=== PATIENT | female | born 1950 | race Caucasian/White ===

== ENCOUNTER 2017-06-15 21:24 | Inpatient (IN) | payer MEDICARE ==
[~2017-06-15] VITALS: Ht 167.6 cm; Wt 80.6 kg
[~2017-06-15 21:24] MED LIST: LOSA50TA3 PO; NORCO10T PO
[2017-06-15] MEDS ORDERED: aspirin 81mg tab.chew PO ONE (21:40)
[2017-06-15] MEDS ORDERED: iohexol 300mg/ml 100ml inj. ONE (21:50)
[2017-06-15] MEDS ORDERED: iohexol 350MG/ML 100ml bottle IV ONE (21:51)
[2017-06-15 22:24] LABS: BASOPHILS % (AUTO) 0.3 % (0-1); EOSINOPHILS # (AUTO) 0.2 X10'3 (0-0.9); EOSINOPHILS % (AUTO) 1.4 % (0-6); HEMATOCRIT 31.3 % (35.0-45.0); LYMPHOCYTES # (AUTO) 0.9 X10'3 (1.1-4.8); LYMPHOCYTES % (AUTO) 6.4 % (21-51); MEAN CORPUSCULAR HEMOGLOBIN 24.9 PG (27.0-31.0); MEAN CORPUSCULAR HGB CONC 31.9 % (33.0-36.5); MEAN CORPUSCULAR VOLUME 78.2 FL (78-98); MEAN PLATELET VOLUME 7.9 FL (7.4-10.4); MONOCYTES # (AUTO) 1.2 X10'3 (0-0.9); MONOCYTES % (AUTO) 8.7 % (2-12); NEUTROPHILS # (AUTO) 11.1 X10'3 (1.8-7.7); NEUTROPHILS % (AUTO) 83.2 % (42-75); PLATELET COUNT 336 X10'3 (140-440); WHITE BLOOD COUNT 13.3 X10'3 (4.5-11.0)
[2017-06-15 22:36] LABS: PARTIAL THROMBOPLASTIN TIME 54 SECONDS (22-32); PROTHROMBIN TIME 10.7 SECONDS (9.0-12.0)
[2017-06-15 23:16] LABS: ALANINE AMINOTRANSFERASE 54 U/L (12-78); ALBUMIN 2.7 G/DL (3.4-5.0); ALBUMIN/GLOBULIN RATIO 0.6 (1.1-1.5); ALKALINE PHOSPHATASE 143 IU/L (46-116); ANION GAP 7 (8-16); ASPARTATE AMINO TRANSFERASE 221 U/L (10-37); BILIRUBIN,TOTAL 0.5 MG/DL (0.1-1.0); BLOOD UREA NITROGEN 21 MG/DL (7-18); BUN/CREATININE RATIO 15.7 (6.6-38.0); CALCIUM 8.1 MG/DL (8.5-10.1); CHLORIDE 102 MMOL/L (99-107); CREATININE 1.34 MG/DL (0.40-0.90); GLUCOSE 121 MG/DL (70-104); MAGNESIUM 2.7 MG/DL (1.5-2.4); POTASSIUM 4.3 MMOL/L (3.5-5.1); SODIUM 139 MMOL/L (135-145); TOTAL CARBON DIOXIDE 30.3 MMOL/L (24-32); TOTAL PROTEIN 7.2 G/DL (6.4-8.2); eGFR 40 ML/MIN
[2017-06-15] MEDS ORDERED: normal saline 1000ml 1,000 ML IV SCH (23:44)
[2017-06-15] MEDS ORDERED: morphine 4 MG/ML inj SYRINge IV PRN (23:45)
[2017-06-15] MEDS ORDERED: acetaminophen 325mg tablet PO PRN (23:45)
[2017-06-15] MEDS ORDERED: mag hydrox/Alum hydrox/simeth 30ml oral suspension PO PRN (23:45)
[2017-06-15] MEDS ORDERED: magnesium hydroxide 30ml (MOM) UD suspension PO PRN (23:45)
[2017-06-15] MEDS ORDERED: ondansetron 4mg rapidly disintigrating tab PO ONE (23:45)
[2017-06-15] MEDS ORDERED: heparin 10,000 units/1 ML INJ IV ONE (23:50)
[2017-06-15] MEDS ORDERED: heparin 10,000 units/1 ML INJ IV PRN (23:50)
[2017-06-16] VITALS (10 sets, daily range): BP systolic 91–132; BP diastolic 60–111
[2017-06-16] MEDS ORDERED: losartan 50mg tablet PO PRN
[2017-06-16 00:18] LABS: HEMOGLOBIN A1C 6.2 % (4.5-6.2)
[2017-06-16] MEDS ORDERED: FENT-91 TP (02:56)
[2017-06-16] MEDS: HYDROcodone/acetaminophen 10/325mg tab PO PRN ×3 (05:07→20:26)
[2017-06-16 05:39] LABS: BASOPHILS % (AUTO) 0.1 % (0-1); EOSINOPHILS # (AUTO) 0.2 X10'3 (0-0.9); EOSINOPHILS % (AUTO) 1.6 % (0-6); HEMATOCRIT 32.9 % (35.0-45.0); HEMOGLOBIN 10.6 g/dl (12.0-16.0); LYMPHOCYTES # (AUTO) 0.9 X10'3 (1.1-4.8); LYMPHOCYTES % (AUTO) 7.7 % (21-51); MEAN CORPUSCULAR HEMOGLOBIN 25.1 PG (27.0-31.0); MEAN CORPUSCULAR HGB CONC 32.2 % (33.0-36.5); MEAN CORPUSCULAR VOLUME 77.9 FL (78-98); MEAN PLATELET VOLUME 8.2 FL (7.4-10.4); MONOCYTES # (AUTO) 1.4 X10'3 (0-0.9); NEUTROPHILS # (AUTO) 9.8 X10'3 (1.8-7.7); NEUTROPHILS % (AUTO) 79.6 % (42-75); PLATELET COUNT 340 X10'3 (140-440); RED BLOOD COUNT 4.22 X10'6 (4.20-5.60); RED CELL DISTRIBUTION WIDTH 16.6 % (11.5-14.5); WHITE BLOOD COUNT 12.3 X10'3 (4.5-11.0)
[2017-06-16 05:53] LABS: ALANINE AMINOTRANSFERASE 56 U/L (12-78); ALBUMIN 2.8 G/DL (3.4-5.0); ALBUMIN/GLOBULIN RATIO 0.5 (1.1-1.5); ALKALINE PHOSPHATASE 151 IU/L (46-116); ANION GAP 9 (8-16); ASPARTATE AMINO TRANSFERASE 230 U/L (10-37); BILIRUBIN,TOTAL 0.5 MG/DL (0.1-1.0); BLOOD UREA NITROGEN 17 MG/DL (7-18); BUN/CREATININE RATIO 12.9 (6.6-38.0); CALCIUM 8.7 MG/DL (8.5-10.1); CHLORIDE 99 MMOL/L (99-107); CHOL/HDL RATIO 3.9 (0.00-4.99); CHOLESTEROL 192 MG/DL (0-200); CREATININE 1.32 MG/DL (0.40-0.90); GLUCOSE 119 MG/DL (70-104); HDL CHOLESTEROL 49 MG/DL (35-60); POTASSIUM 3.8 MMOL/L (3.5-5.1); SODIUM 140 MMOL/L (135-145); TOTAL CARBON DIOXIDE 31.9 MMOL/L (24-32); TOTAL PROTEIN 7.9 G/DL (6.4-8.2); TRIGLYCERIDES 134 MG/DL (20-135); eGFR 40 ML/MIN
[2017-06-16 05:55] LABS: LDL CHOLESTEROL 113 MG/DL (50-100)
[2017-06-16] MEDS: sucralfate 1gm/10ml UD suspension PO SCH ×4 (07:50→21:55)
[2017-06-16] MEDS: pregabalin 75mg capsule PO SCH ×2 (07:55→20:27)
[2017-06-16] MEDS: pantoprazole 40 MG vial IV SCH ×2 (08:00→20:27)
[2017-06-16] MEDS ORDERED: OMEP-50 PO (08:04)
[2017-06-16] MEDS ORDERED: SUCR1TAB PO (08:04)
[2017-06-16] MEDS ORDERED: BUME2TAB3 PO (08:04)
[2017-06-16] MEDS: furosemide 40mg/4ml inj IV ONE ×2 (09:40→10:27)
[2017-06-16] MEDS ORDERED: sodium bicarbonate (8.4%) inj. 100 MEQ in sodium chloride 0.45% 1,000 ML IV SCH (09:40)
[2017-06-16] MEDS: acetylcysteine 200 MG/ml 4ml vial PO SCH ×2 (09:40→21:55)
[2017-06-16] MEDS ORDERED: aspirin 81mg tab.chew PO SCH (09:50)
[2017-06-16] MEDS: tirofiban 5mg in NS 100mL 100 ML IV SCH ×4 (10:27→20:57)
[2017-06-16] MEDS: atorvastatin 20mg tablet PO SCH (10:48)
[2017-06-16] MEDS: ondansetron/PF 4mg/2ml inj IV PRN ×2 (11:05→19:56)
[2017-06-16 14:15] LABS: BASOPHILS % (AUTO) 0.1 % (0-1); EOSINOPHILS # (AUTO) 0.1 X10'3 (0-0.9); EOSINOPHILS % (AUTO) 1.2 % (0-6); HEMATOCRIT 28.9 % (35.0-45.0); HEMOGLOBIN 9.3 g/dl (12.0-16.0); LYMPHOCYTES # (AUTO) 0.8 X10'3 (1.1-4.8); LYMPHOCYTES % (AUTO) 6.8 % (21-51); MEAN CORPUSCULAR HEMOGLOBIN 24.8 PG (27.0-31.0); MEAN CORPUSCULAR VOLUME 77.5 FL (78-98); MEAN PLATELET VOLUME 7.8 FL (7.4-10.4); MONOCYTES # (AUTO) 1.4 X10'3 (0-0.9); MONOCYTES % (AUTO) 11.8 % (2-12); NEUTROPHILS # (AUTO) 9.5 X10'3 (1.8-7.7); NEUTROPHILS % (AUTO) 80.1 % (42-75); PLATELET COUNT 326 X10'3 (140-440); RED BLOOD COUNT 3.73 X10'6 (4.20-5.60); WHITE BLOOD COUNT 11.8 X10'3 (4.5-11.0)
[2017-06-16] MEDS ORDERED: nitroGLYCERIN-Tridil 50MG/D5W 250 ML IV ONE (16:38)
[2017-06-16] MEDS ORDERED: iohexol 350 MG/ML 50ML vial IV ONE (16:39)
[2017-06-16] MEDS ORDERED: heparin 1,000unit/ml 10ml vial 10 ML ONE (16:39)
[2017-06-16] MEDS ORDERED: LIDOcaine 1%/PF (10mg/ml) 5ml vial ONE (16:39)
[2017-06-16] MEDS ORDERED: iohexol 350MG/ML 100ml bottle IV ONE (16:39)
[2017-06-16] MEDS ORDERED: HYDROmorphone inj. 0.5 MG/0.5 ML DISP.SYRIN ONE ×2 (16:59→18:14)
[2017-06-16] MEDS ORDERED: iohexol 350 MG/1 ML 200ml bottle ONE (17:55)
[2017-06-16] MEDS ORDERED: clopidogrel 300mg tablet ONE (18:26)
[2017-06-16 19:16] LABS: ISTAT HGB ART 8.8 g/dl (12.0-16.0); ISTAT Hct ART 26 %PCV (35-48); ISTAT Hct MIX 29 %PCV (35-48); ISTAT O2 SATURATION ARTERIAL 99 % (95-98); ISTAT O2 SATURATION MIX VENOUS 48 % (60-80); ISTAT SOURCE ART; ISTAT SOURCE MIX
[2017-06-16] MEDS ORDERED: proCHLORperazine 10 MG/2 ml inj IV PRN (19:35)
[2017-06-16] MEDS ORDERED: aspirin 325mg tablet PO ONE (19:35)
[2017-06-16] MEDS ORDERED: acetaminophen 325mg tablet PO PRN (19:35)
[2017-06-16] MEDS ORDERED: magnesium hydroxide 30ml (MOM) UD suspension PO PRN (19:35)
[2017-06-16] MEDS: carVEDilol 3.125mg tablet PO SCH (20:00)
[2017-06-16] MEDS ORDERED: magnesium 2GM in 50ml NS 50 ML IV PRN (20:10)
[2017-06-16] MEDS ORDERED: potassium Cl 40MEQ/NS 500ml 500 ML IV PRN ×2 (20:10)
[2017-06-16] MEDS ORDERED: magnesium 4gm in 100ml NS 100 ML IV PRN (20:10)
[2017-06-16] MEDS: docusate sod 100mg capsule PO SCH (20:27)
[2017-06-16] MEDS: cyclobenzaprine 10mg tablet PO PRN (20:27)
[2017-06-16] MEDS: furosemide 20 MG/2 ML vial IV SCH (20:56)
[2017-06-17] VITALS (25 sets, daily range): BP systolic 84–167; BP diastolic 46–75
[2017-06-17] MEDS: fentaNYL/PF 50MCG/1 ML 2ML syringe IV PRN ×5 (00:07→19:52)
[2017-06-17] MEDS: HYDROcodone/acetaminophen 10/325mg tab PO PRN ×4 (00:57→20:10)
[2017-06-17] MEDS: OXAZEpam 15mg capsule PO PRN ×2 (00:57→22:33)
[2017-06-17 03:00] LABS: BASOPHILS % (AUTO) 0 % (0-1); EOSINOPHILS # (AUTO) 0.2 X10'3 (0-0.9); EOSINOPHILS % (AUTO) 1.6 % (0-6); HEMATOCRIT 22.8 % (35.0-45.0); HEMOGLOBIN 7.3 g/dl (12.0-16.0); LYMPHOCYTES # (AUTO) 0.8 X10'3 (1.1-4.8); LYMPHOCYTES % (AUTO) 5.9 % (21-51); MEAN CORPUSCULAR HGB CONC 31.9 % (33.0-36.5); MEAN CORPUSCULAR VOLUME 78.4 FL (78-98); MEAN PLATELET VOLUME 7.9 FL (7.4-10.4); MONOCYTES # (AUTO) 1.6 X10'3 (0-0.9); MONOCYTES % (AUTO) 11.1 % (2-12); NEUTROPHILS # (AUTO) 11.5 X10'3 (1.8-7.7); NEUTROPHILS % (AUTO) 81.4 % (42-75); PLATELET COUNT 315 X10'3 (140-440); RED CELL DISTRIBUTION WIDTH 16.8 % (11.5-14.5); WHITE BLOOD COUNT 14.2 X10'3 (4.5-11.0)
[2017-06-17 03:27] LABS: ALANINE AMINOTRANSFERASE 66 U/L (12-78); ALBUMIN 2.2 G/DL (3.4-5.0); ALBUMIN/GLOBULIN RATIO 0.6 (1.1-1.5); ALKALINE PHOSPHATASE 123 IU/L (46-116); ANION GAP 7 (8-16); ASPARTATE AMINO TRANSFERASE 135 U/L (10-37); BILIRUBIN,TOTAL 0.5 MG/DL (0.1-1.0); BLOOD UREA NITROGEN 17 MG/DL (7-18); BUN/CREATININE RATIO 14.4 (6.6-38.0); CALCIUM 7.8 MG/DL (8.5-10.1); CHLORIDE 102 MMOL/L (99-107); CREATININE 1.18 MG/DL (0.40-0.90); GLUCOSE 127 MG/DL (70-104); MAGNESIUM 2.3 MG/DL (1.5-2.4); POTASSIUM 3.8 MMOL/L (3.5-5.1); SODIUM 139 MMOL/L (135-145); TOTAL CARBON DIOXIDE 30.5 MMOL/L (24-32); TOTAL PROTEIN 6.1 G/DL (6.4-8.2); eGFR 46 ML/MIN
[2017-06-17] MEDS: tirofiban 5mg in NS 100mL 100 ML IV SCH ×2 (03:36→12:27)
[2017-06-17] MEDS ORDERED: potassium Cl 40MEQ/NS 500ml 500 ML IV ONE (04:07)
[2017-06-17] MEDS: cyclobenzaprine 10mg tablet PO PRN (05:40)
[2017-06-17 07:06] LABS: HEMATOCRIT 23.1 % (35.0-45.0); HEMOGLOBIN 7.4 g/dl (12.0-16.0); MEAN CORPUSCULAR HEMOGLOBIN 24.9 PG (27.0-31.0); MEAN CORPUSCULAR HGB CONC 32.2 % (33.0-36.5); MEAN CORPUSCULAR VOLUME 77.3 FL (78-98); MEAN PLATELET VOLUME 7.8 FL (7.4-10.4); PLATELET COUNT 297 X10'3 (140-440); RED CELL DISTRIBUTION WIDTH 16.9 % (11.5-14.5); WHITE BLOOD COUNT 12.6 X10'3 (4.5-11.0)
[2017-06-17] MEDS ORDERED: lisinopril 2.5mg tablet PO SCH (08:00)
[2017-06-17] MEDS: pantoprazole 40 MG vial IV SCH ×2 (08:01→20:29)
[2017-06-17] MEDS: furosemide 20 MG/2 ML vial IV SCH (08:01)
[2017-06-17] MEDS: carVEDilol 3.125mg tablet PO SCH ×2 (08:01→20:00)
[2017-06-17] MEDS: docusate sod 100mg capsule PO SCH ×2 (08:01→20:10)
[2017-06-17] MEDS: sucralfate 1gm/10ml UD suspension PO SCH ×4 (08:01→20:25)
[2017-06-17] MEDS: aspirin 325mg tablet PO SCH (08:02)
[2017-06-17] MEDS: atorvastatin 20mg tablet PO SCH (08:02)
[2017-06-17] MEDS: pregabalin 75mg capsule PO SCH ×2 (08:02→20:10)
[2017-06-17] MEDS: clopidogrel 75mg tablet PO SCH (08:26)
[2017-06-17] MEDS: acetylcysteine 200 MG/ml 4ml vial PO SCH ×2 (09:56→20:23)
[2017-06-17] MEDS: lisinopril 2.5mg tablet PO SCH (21:00)
[2017-06-17] MEDS ORDERED: potassium Cl 20 mEq SR tablet PO ONE (21:19)
[2017-06-17] MEDS ORDERED: amiodarone/D5 450MG/250ML BAG 250 ML IV PRN (21:19)
[2017-06-17] MEDS ORDERED: amiodarone 150mg/dext, iso-os 100 ML IV ONE (21:20)
[2017-06-17] MEDS ORDERED: furosemide 20 MG/2 ML vial IV ONE (21:20)
[2017-06-17] MEDS: digoxin 250mcg/ml 2ml ampule IV SCH (22:41)
[2017-06-18] VITALS (29 sets, daily range): BP systolic 75–125; BP diastolic 43–76
[2017-06-18] MEDS: digoxin 250mcg/ml 2ml ampule IV SCH ×2 (01:33→05:20)
[2017-06-18] MEDS ORDERED: digoxin 250mcg/ml 2ml ampule ONE (05:17)
[2017-06-18 05:57] LABS: ALANINE AMINOTRANSFERASE 52 U/L (12-78); ALBUMIN 2.1 G/DL (3.4-5.0); ALBUMIN/GLOBULIN RATIO 0.5 (1.1-1.5); ALKALINE PHOSPHATASE 122 IU/L (46-116); ANION GAP 9 (8-16); ASPARTATE AMINO TRANSFERASE 57 U/L (10-37); BASOPHILS % (AUTO) 0.2 % (0-1); BILIRUBIN,TOTAL 0.4 MG/DL (0.1-1.0); BLOOD UREA NITROGEN 13 MG/DL (7-18); BUN/CREATININE RATIO 12.4 (6.6-38.0); CALCIUM 8.5 MG/DL (8.5-10.1); CHLORIDE 101 MMOL/L (99-107); CREATININE 1.05 MG/DL (0.40-0.90); EOSINOPHILS # (AUTO) 0.3 X10'3 (0-0.9); EOSINOPHILS % (AUTO) 2.2 % (0-6); GLUCOSE 148 MG/DL (70-104); HEMATOCRIT 24.2 % (35.0-45.0); HEMOGLOBIN 7.8 g/dl (12.0-16.0); LYMPHOCYTES # (AUTO) 0.7 X10'3 (1.1-4.8); MEAN CORPUSCULAR HEMOGLOBIN 25.7 PG (27.0-31.0); MEAN CORPUSCULAR HGB CONC 32.3 % (33.0-36.5); MEAN CORPUSCULAR VOLUME 79.7 FL (78-98); MEAN PLATELET VOLUME 8.1 FL (7.4-10.4); MONOCYTES # (AUTO) 1.3 X10'3 (0-0.9); MONOCYTES % (AUTO) 11.4 % (2-12); NEUTROPHILS # (AUTO) 9.4 X10'3 (1.8-7.7); NEUTROPHILS % (AUTO) 80.2 % (42-75); PLATELET COUNT 282 X10'3 (140-440); POTASSIUM 4.3 MMOL/L (3.5-5.1); RED BLOOD COUNT 3.04 X10'6 (4.20-5.60); RED CELL DISTRIBUTION WIDTH 16.8 % (11.5-14.5); SODIUM 138 MMOL/L (135-145); TOTAL CARBON DIOXIDE 27.8 MMOL/L (24-32); TOTAL PROTEIN 6.7 G/DL (6.4-8.2); WHITE BLOOD COUNT 11.8 X10'3 (4.5-11.0); eGFR 53 ML/MIN
[2017-06-18] MEDS: sucralfate 1gm/10ml UD suspension PO SCH ×4 (06:56→20:31)
[2017-06-18] MEDS: carVEDilol 3.125mg tablet PO SCH ×2 (07:42→20:00)
[2017-06-18] MEDS: pantoprazole 40 MG vial IV SCH ×2 (07:43→20:30)
[2017-06-18] MEDS: HYDROcodone/acetaminophen 10/325mg tab PO PRN ×4 (07:43→22:15)
[2017-06-18] MEDS: atorvastatin 20mg tablet PO SCH (07:43)
[2017-06-18] MEDS: furosemide 20 MG/2 ML vial IV SCH (07:43)
[2017-06-18] MEDS: acetylcysteine 200 MG/ml 4ml vial PO SCH ×2 (07:43→20:00)
[2017-06-18] MEDS: docusate sod 100mg capsule PO SCH ×2 (07:43→20:31)
[2017-06-18] MEDS: aspirin 325mg tablet PO SCH (07:43)
[2017-06-18] MEDS: pregabalin 75mg capsule PO SCH ×2 (07:43→20:31)
[2017-06-18] MEDS: clopidogrel 75mg tablet PO SCH (07:46)
[2017-06-18] MEDS ORDERED: furosemide 20 MG/2 ML vial IV ONE ×2 (12:00→17:00)
[2017-06-18] MEDS: amiodarone 200mg tablet PO SCH ×2 (12:58→20:30)
[2017-06-18] MEDS: Protein Smoothie (high protein) 240ml (8oz) cup PO SCH ×2 (13:00→18:49)
[2017-06-18] MEDS ORDERED: ipratropium/albuterol 3ml nebule NEB PRN (19:30)
[2017-06-18] MEDS ORDERED: amiodarone 200mg tablet PO SCH (20:00)
[2017-06-18] MEDS: lisinopril 2.5mg tablet PO SCH (20:27)
[2017-06-18] MEDS ORDERED: fentaNYL 50MCG/HOUR patch.TD72 TD SCH (22:00)
[2017-06-19] VITALS (19 sets, daily range): BP systolic 77–114; BP diastolic 49–71
[2017-06-19 03:41] LABS: OCCULT BLOOD STOOL NEGATIVE (Neg)
[2017-06-19] MEDS: HYDROcodone/acetaminophen 10/325mg tab PO PRN ×4 (04:37→20:15)
[2017-06-19 06:03] LABS: BASOPHILS % (AUTO) 0.5 % (0-1); EOSINOPHILS # (AUTO) 0.4 X10'3 (0-0.9); EOSINOPHILS % (AUTO) 3.8 % (0-6); HEMATOCRIT 31.3 % (35.0-45.0); HEMOGLOBIN 10.6 g/dl (12.0-16.0); LYMPHOCYTES # (AUTO) 0.7 X10'3 (1.1-4.8); LYMPHOCYTES % (AUTO) 6.7 % (21-51); MEAN CORPUSCULAR HEMOGLOBIN 27.3 PG (27.0-31.0); MEAN CORPUSCULAR HGB CONC 33.9 % (33.0-36.5); MEAN CORPUSCULAR VOLUME 80.4 FL (78-98); MEAN PLATELET VOLUME 8.3 FL (7.4-10.4); MONOCYTES % (AUTO) 10.6 % (2-12); NEUTROPHILS # (AUTO) 7.7 X10'3 (1.8-7.7); NEUTROPHILS % (AUTO) 78.4 % (42-75); PLATELET COUNT 287 X10'3 (140-440); RED BLOOD COUNT 3.89 X10'6 (4.20-5.60); RED CELL DISTRIBUTION WIDTH 16.1 % (11.5-14.5); WHITE BLOOD COUNT 9.9 X10'3 (4.5-11.0)
[2017-06-19 06:20] LABS: ALANINE AMINOTRANSFERASE 51 U/L (12-78); ALBUMIN 2.3 G/DL (3.4-5.0); ALBUMIN/GLOBULIN RATIO 0.5 (1.1-1.5); ALKALINE PHOSPHATASE 140 IU/L (46-116); ANION GAP 1 (8-16); ASPARTATE AMINO TRANSFERASE 32 U/L (10-37); BILIRUBIN,TOTAL 0.8 MG/DL (0.1-1.0); BLOOD UREA NITROGEN 16 MG/DL (7-18); BUN/CREATININE RATIO 15.5 (6.6-38.0); CALCIUM 8.8 MG/DL (8.5-10.1); CHLORIDE 97 MMOL/L (99-107); CREATININE 1.03 MG/DL (0.40-0.90); GLUCOSE 103 MG/DL (70-104); POTASSIUM 3.7 MMOL/L (3.5-5.1); SODIUM 127 MMOL/L (135-145); TOTAL CARBON DIOXIDE 29.3 MMOL/L (24-32); eGFR 54 ML/MIN
[2017-06-19] MEDS: sucralfate 1gm/10ml UD suspension PO SCH ×4 (08:03→21:25)
[2017-06-19] MEDS: aspirin 325mg tablet PO SCH (08:03)
[2017-06-19] MEDS: pregabalin 75mg capsule PO SCH ×2 (08:04→20:03)
[2017-06-19] MEDS: furosemide 20 MG/2 ML vial IV SCH (08:04)
[2017-06-19] MEDS: atorvastatin 20mg tablet PO SCH (08:04)
[2017-06-19] MEDS: amiodarone 200mg tablet PO SCH ×2 (08:04→20:03)
[2017-06-19] MEDS: pantoprazole 40 MG vial IV SCH ×2 (08:04→20:05)
[2017-06-19] MEDS: carVEDilol 3.125mg tablet PO SCH ×2 (08:04→20:04)
[2017-06-19] MEDS: docusate sod 100mg capsule PO SCH ×2 (08:04→20:03)
[2017-06-19] MEDS: clopidogrel 75mg tablet PO SCH (08:04)
[2017-06-19] MEDS: Protein Smoothie (high protein) 240ml (8oz) cup PO SCH ×3 (08:13→19:00)
[2017-06-19] MEDS: acetylcysteine 200 MG/ml 4ml vial PO SCH (08:18)
[2017-06-19 16:22] LABS: ALBUMIN 2.2 G/DL (3.4-5.0); ANION GAP 7 (8-16); BLOOD UREA NITROGEN 19 MG/DL (7-18); BUN/CREATININE RATIO 17.4 (6.6-38.0); CALCIUM 8.7 MG/DL (8.5-10.1); CHLORIDE 100 MMOL/L (99-107); CREATININE 1.09 MG/DL (0.40-0.90); GLUCOSE 105 MG/DL (70-104); POTASSIUM 4.1 MMOL/L (3.5-5.1); SODIUM 138 MMOL/L (135-145); eGFR 50 ML/MIN
[2017-06-19] MEDS: lisinopril 2.5mg tablet PO SCH (21:25)
[2017-06-20] MEDS: HYDROcodone/acetaminophen 10/325mg tab PO PRN ×5 (02:00→21:36)
[2017-06-20 03:00] VITALS: BP 92/62
[2017-06-20 05:47] LABS: BASOPHILS % (AUTO) 0.2 % (0-1); EOSINOPHILS # (AUTO) 0.4 X10'3 (0-0.9); EOSINOPHILS % (AUTO) 4.4 % (0-6); HEMATOCRIT 29.5 % (35.0-45.0); HEMOGLOBIN 9.9 g/dl (12.0-16.0); LYMPHOCYTES # (AUTO) 0.5 X10'3 (1.1-4.8); LYMPHOCYTES % (AUTO) 6.1 % (21-51); MEAN CORPUSCULAR HEMOGLOBIN 26.9 PG (27.0-31.0); MEAN CORPUSCULAR HGB CONC 33.5 % (33.0-36.5); MEAN CORPUSCULAR VOLUME 80.4 FL (78-98); MEAN PLATELET VOLUME 8.3 FL (7.4-10.4); MONOCYTES % (AUTO) 11.8 % (2-12); NEUTROPHILS # (AUTO) 6.7 X10'3 (1.8-7.7); NEUTROPHILS % (AUTO) 77.5 % (42-75); PLATELET COUNT 314 X10'3 (140-440); RED BLOOD COUNT 3.66 X10'6 (4.20-5.60); RED CELL DISTRIBUTION WIDTH 16.6 % (11.5-14.5); WHITE BLOOD COUNT 8.7 X10'3 (4.5-11.0)
[2017-06-20 06:00] VITALS: BP 99/57
[2017-06-20 06:27] LABS: ALANINE AMINOTRANSFERASE 41 U/L (12-78); ALBUMIN 2.2 G/DL (3.4-5.0); ALBUMIN/GLOBULIN RATIO 0.5 (1.1-1.5); ALKALINE PHOSPHATASE 140 IU/L (46-116); ANION GAP 6 (8-16); ASPARTATE AMINO TRANSFERASE 24 U/L (10-37); BILIRUBIN,TOTAL 0.6 MG/DL (0.1-1.0); BLOOD UREA NITROGEN 17 MG/DL (7-18); BUN/CREATININE RATIO 17.9 (6.6-38.0); CALCIUM 9.2 MG/DL (8.5-10.1); CHLORIDE 100 MMOL/L (99-107); CREATININE 0.95 MG/DL (0.40-0.90); GLUCOSE 109 MG/DL (70-104); POTASSIUM 4.2 MMOL/L (3.5-5.1); SODIUM 138 MMOL/L (135-145); TOTAL CARBON DIOXIDE 31.6 MMOL/L (24-32); eGFR 59 ML/MIN
[2017-06-20] MEDS: Protein Smoothie (high protein) 240ml (8oz) cup PO SCH ×3 (08:00→18:05)
[2017-06-20] MEDS: carVEDilol 3.125mg tablet PO SCH ×2 (09:00→20:00)
[2017-06-20] MEDS: furosemide 20 MG/2 ML vial IV SCH (09:07)
[2017-06-20] MEDS: amiodarone 200mg tablet PO SCH ×2 (09:07→20:51)
[2017-06-20] MEDS: pregabalin 75mg capsule PO SCH ×2 (09:07→20:51)
[2017-06-20] MEDS: sucralfate 1gm/10ml UD suspension PO SCH ×4 (09:08→20:51)
[2017-06-20] MEDS: aspirin 325mg tablet PO SCH (09:08)
[2017-06-20] MEDS: docusate sod 100mg capsule PO SCH ×2 (09:08→20:51)
[2017-06-20] MEDS: pantoprazole 40 MG vial IV SCH (09:08)
[2017-06-20] MEDS: atorvastatin 20mg tablet PO SCH (09:08)
[2017-06-20] MEDS: clopidogrel 75mg tablet PO SCH (09:09)
[2017-06-20 11:00] VITALS: BP 89/53
[2017-06-20] MEDS: budesonide 0.5mg/2ml UD nebule IH SCH ×2 (11:53→20:36)
[2017-06-20] MEDS ORDERED: furosemide 20 MG/2 ML vial IV ONE (12:00)
[2017-06-20] MEDS ORDERED: potassium Cl 20 mEq SR tablet PO STA (13:39)
[2017-06-20 15:00] VITALS: BP 105/64
[2017-06-20 19:00] VITALS: BP 83/53
[2017-06-20] MEDS: pantoprazole 40mg Tablet.DR PO SCH (20:51)
[2017-06-21] MEDS: HYDROcodone/acetaminophen 10/325mg tab PO PRN ×4 (01:27→14:57)
[2017-06-21 03:00] VITALS: BP 96/61
[2017-06-21 05:18] LABS: BASOPHILS % (AUTO) 0.6 % (0-1); EOSINOPHILS # (AUTO) 0.4 X10'3 (0-0.9); EOSINOPHILS % (AUTO) 5.2 % (0-6); HEMATOCRIT 29.6 % (35.0-45.0); HEMOGLOBIN 9.7 g/dl (12.0-16.0); LYMPHOCYTES # (AUTO) 0.6 X10'3 (1.1-4.8); LYMPHOCYTES % (AUTO) 8.9 % (21-51); MEAN CORPUSCULAR HEMOGLOBIN 26.7 PG (27.0-31.0); MEAN CORPUSCULAR HGB CONC 32.7 % (33.0-36.5); MEAN CORPUSCULAR VOLUME 81.4 FL (78-98); MONOCYTES # (AUTO) 0.9 X10'3 (0-0.9); MONOCYTES % (AUTO) 13.2 % (2-12); NEUTROPHILS % (AUTO) 72.1 % (42-75); PLATELET COUNT 361 X10'3 (140-440); RED BLOOD COUNT 3.63 X10'6 (4.20-5.60); RED CELL DISTRIBUTION WIDTH 16.9 % (11.5-14.5)
[2017-06-21 06:00] VITALS: BP 93/50
[2017-06-21 06:33] LABS: ALANINE AMINOTRANSFERASE 32 U/L (12-78); ALBUMIN 2.1 G/DL (3.4-5.0); ALBUMIN/GLOBULIN RATIO 0.5 (1.1-1.5); ALKALINE PHOSPHATASE 132 IU/L (46-116); ANION GAP 4 (8-16); ASPARTATE AMINO TRANSFERASE 19 U/L (10-37); BILIRUBIN,TOTAL 0.6 MG/DL (0.1-1.0); BLOOD UREA NITROGEN 20 MG/DL (7-18); BUN/CREATININE RATIO 20.4 (6.6-38.0); CALCIUM 9.1 MG/DL (8.5-10.1); CHLORIDE 101 MMOL/L (99-107); CREATININE 0.98 MG/DL (0.40-0.90); GLUCOSE 109 MG/DL (70-104); SODIUM 139 MMOL/L (135-145); TOTAL CARBON DIOXIDE 33.8 MMOL/L (24-32); TOTAL PROTEIN 6.7 G/DL (6.4-8.2); eGFR 57 ML/MIN
[2017-06-21] MEDS ORDERED: LYR75C PO (07:03)
[2017-06-21] MEDS ORDERED: IBUP200C89 PO (07:20)
[2017-06-21] MEDS: sucralfate 1gm/10ml UD suspension PO SCH ×2 (07:31→12:00)
[2017-06-21] MEDS: carVEDilol 3.125mg tablet PO SCH (07:54)
[2017-06-21] MEDS: furosemide 20 MG/2 ML vial IV SCH (07:54)
[2017-06-21] MEDS: amiodarone 200mg tablet PO SCH (08:00)
[2017-06-21] MEDS ORDERED: losartan 25mg tablet PO SCH (08:00)
[2017-06-21] MEDS: pregabalin 75mg capsule PO SCH (08:06)
[2017-06-21] MEDS: docusate sod 100mg capsule PO SCH (08:06)
[2017-06-21] MEDS: pantoprazole 40mg Tablet.DR PO SCH (08:06)
[2017-06-21] MEDS: clopidogrel 75mg tablet PO SCH (08:06)
[2017-06-21] MEDS: atorvastatin 20mg tablet PO SCH (08:06)
[2017-06-21] MEDS: aspirin 325mg tablet PO SCH (08:06)
[2017-06-21] MEDS: Protein Smoothie (high protein) 240ml (8oz) cup PO SCH (08:08)
[2017-06-21 11:00] VITALS: BP 124/80
[2017-06-21] MEDS: budesonide 0.5mg/2ml UD nebule IH SCH (11:21)
[2017-06-21] MEDS ORDERED: AMIO200T57 PO (14:27)
[2017-06-21] MEDS ORDERED: POTA10TA15 PO (14:27)
[2017-06-21] MEDS ORDERED: COR3.125T PO (14:27)
[2017-06-21] MEDS ORDERED: CLOP75TA35 PO (14:27)
[2017-06-21] MEDS ORDERED: ASPI-1 PO (14:27)
[2017-06-21] MEDS ORDERED: UMEC1DIS INH (14:27)
[2017-06-21] MEDS ORDERED: LOSA25TA21 PO (14:27)
[2017-06-21] MEDS ORDERED: ATOR20TA66 PO (14:27)
[2017-06-21] MEDS ORDERED: FURO-150 PO (14:27)
== END 2017-06-21 16:22 | disposition home or self-care (01) | DRG 246 ==
LOC: ER 21:24 → ED HOLD 23:44 → PCU 3S 06-16 00:30 → ICU 2S 06-16 19:10 → PCU 3S 06-19 17:45
PROVIDERS: ADMIT Internal Medicine; ATTEND Family Medicine
PROC: B32T1ZZ Computerized Tomography (CT Scan) of Left Pulmonary Artery using Low Osmolar Contrast (ICD-10-PCS; 2017-06-15)
PROC: B3201ZZ Computerized Tomography (CT Scan) of Thoracic Aorta using Low Osmolar Contrast (ICD-10-PCS; 2017-06-15)
PROC: B32S1ZZ Computerized Tomography (CT Scan) of Right Pulmonary Artery using Low Osmolar Contrast (ICD-10-PCS; 2017-06-15)
PROC: BT2 Imaging, Urinary System, Computerized Tomography (CT Scan) (ICD-10-PCS; 2017-06-15)
PROC: BB241ZZ Computerized Tomography (CT Scan) of Bilateral Lungs using Low Osmolar Contrast (ICD-10-PCS; 2017-06-15)
PROC: 4A023N8 Measurement of Cardiac Sampling and Pressure, Bilateral, Percutaneous Approach (ICD-10-PCS; principal; 2017-06-16)
PROC: 027034Z Dilation of Coronary Artery, One Artery with Drug-eluting Intraluminal Device, Percutaneous Approach (ICD-10-PCS; 2017-06-16)
PROC: B2111ZZ Fluoroscopy of Multiple Coronary Arteries using Low Osmolar Contrast (ICD-10-PCS; 2017-06-16)
PROC: B2151ZZ Fluoroscopy of Left Heart using Low Osmolar Contrast (ICD-10-PCS; 2017-06-16)
PROC: 30233N1 Transfusion of Nonautologous Red Blood Cells into Peripheral Vein, Percutaneous Approach (ICD-10-PCS; 2017-06-17)
DX: I21.4 Non-ST elevation (NSTEMI) myocardial infarction (principal); I50.31 Acute diastolic (congestive) heart failure; N17.9 Acute kidney failure, unspecified; C79.51 Secondary malignant neoplasm of bone; I27.20 Pulmonary hypertension, unspecified; I95.9 Hypotension, unspecified; E87.1 Hypo-osmolality and hyponatremia; I48.92 Unspecified atrial flutter; I48.0 Paroxysmal atrial fibrillation; M54.6 Pain in thoracic spine; G89.4 Chronic pain syndrome; D64.9 Anemia, unspecified; D72.829 Elevated white blood cell count, unspecified; I25.10 Atherosclerotic heart disease of native coronary artery without angina pectoris; E78.5 Hyperlipidemia, unspecified; K21.9 Gastro-esophageal reflux disease without esophagitis; N18.9 Chronic kidney disease, unspecified; Z90.2 Acquired absence of lung [part of]; Z79.02 Long term (current) use of antithrombotics/antiplatelets; Z79.82 Long term (current) use of aspirin; Z79.899 Other long term (current) drug therapy; Z87.891 Personal history of nicotine dependence; Z92.3 Personal history of irradiation; Z85.118 Personal history of other malignant neoplasm of bronchus and lung; Z80.51 Family history of malignant neoplasm of kidney
CPT/HCPCS: 93460; 96365; 99291; C9606; 36415; 71045; 71275; 80048; 80053; 80061; 80162; 82272; 82803; 83036; 83735; 83880; 84484; 85014; 85025; 85027; 85347; 85610; 85730; 86870; 86885; 86900; 86901; 86902; 86905; 86922; 87070; 93005; 93308; 93926; 94640; 94760; 97116; 97162; 97530; 99152; 99153; A4620; A6213; A6257; A6402; A6449; C1725; C1769; C1874; C9113; J0282; J0780; J1160; J1170; J1644; J1940; J2001; J2270; J2405; J3010; J3246; J3480; J3490; J7030; J7626; P9016; Q9967